=== PATIENT | female | born 1935 | race Two or more races ===

== ENCOUNTER 2018-09-09 10:45 | Outpatient (CLI) | payer MEDICARE, BC | END 2018-09-09 23:59 | disposition home health service (06) | LOC: WOU 10:45 | PROVIDERS: ATTEND Podiatrist Foot & Ankle Surgery | DX: M20.12 Hallux valgus (acquired), left foot (principal); M20.11 Hallux valgus (acquired), right foot; M06.9 Rheumatoid arthritis, unspecified; R60.0 Localized edema; Z86.718 Personal history of other venous thrombosis and embolism; Z85.3 Personal history of malignant neoplasm of breast | CPT/HCPCS: A6402; G0463 ==

== ENCOUNTER 2018-09-12 11:22 | Outpatient (CLI) | payer MEDICARE, BC | END 2018-09-12 23:59 | disposition home or self-care (01) | LOC: LAB 11:22 | PROVIDERS: ATTEND Podiatrist Foot & Ankle Surgery | DX: M20.11 Hallux valgus (acquired), right foot (principal); M20.12 Hallux valgus (acquired), left foot; M20.41 Other hammer toe(s) (acquired), right foot; I70.208 Unspecified atherosclerosis of native arteries of extremities, other extremity | CPT/HCPCS: 73630-TC ==

== ENCOUNTER 2018-10-07 10:25 | Outpatient (CLI) | payer MEDICARE, BC | END 2018-10-07 23:59 | disposition home health service (06) | LOC: WOU 10:25 | PROVIDERS: ATTEND Podiatrist Foot & Ankle Surgery | DX: M20.11 Hallux valgus (acquired), right foot (principal); M21.611 Bunion of right foot; M20.40 Other hammer toe(s) (acquired), unspecified foot; M06.9 Rheumatoid arthritis, unspecified; M79.671 Pain in right foot; Z79.899 Other long term (current) drug therapy | CPT/HCPCS: G0463 ==

== ENCOUNTER 2018-10-16 11:34 | Outpatient (CLI) | payer MEDICARE, BC | END 2018-10-16 23:59 | disposition home or self-care (01) | LOC: CARD 11:34 | PROVIDERS: ATTEND Podiatrist Foot & Ankle Surgery | DX: I65.23 Occlusion and stenosis of bilateral carotid arteries (principal); I70.203 Unspecified atherosclerosis of native arteries of extremities, bilateral legs | CPT/HCPCS: 93880-TC; 93970-TC ==

== ENCOUNTER 2018-11-11 14:25 | Outpatient (CLI) | payer MEDICARE, BC ==
[2018-11-11 15:55] LABS: BASOPHILS # (AUTO) 0.1 /CMM (0.0-0.2); BASOPHILS % (AUTO) 1.1 % (0.0-2.0); EOSINOPHILS % (AUTO) 4.5 % (0.0-6.0); HEMATOCRIT 40 % (33-45); HEMOGLOBIN 13.7 g/dL (11.5-14.8); LYMPHOCYTES % (AUTO) 20.4 % (20.0-44.0); MEAN CORPUSCULAR HGB CONC 34 g/dl (31.0-36.0); MEAN CORPUSCULAR VOLUME 103 fL (82-100); MONOCYTES # (AUTO) 0.8 /CMM (0.1-1.30); NEUTROPHILS # (AUTO) 2.8 /CMM (1.8-8.9); PLATELET COUNT (AUTO) 179 /CMM (150-450); RED BLOOD CELL COUNT(AUTO) 3.88 MIL/uL (4.0-5.2); WHITE BLOOD COUNT (AUTO) 4.9 K/uL (4.3-11.0)
[2018-11-11 16:14] LABS: CALCIUM, SERUM 9.2 mg/dL (8.5-10.1); CARBON DIOXIDE 30 mmol/L (21-32); CHLORIDE 104 mmol/L (98-107); CREATININE 1.3 mg/dL (0.6-1.3); GLUCOSE 113 mg/dL (74-106); POTASSIUM 4.2 mmol/L (3.5-5.1); SODIUM SERUM 144 mmol/L (136-145); UREA NITROGEN, BLOOD 41 mg/dL (7-18)
[2018-11-11 17:04] LABS: EOSINOPHILS % (MANUAL) 4 % (0-4); LYMPHOCYTES % (MANUAL) 28 % (16-48); MONOCYTES % (MANUAL) 12 % (0-11.0); NEUTROPHILS % (MANUAL) 56 (42-76)
== END 2018-11-11 23:59 | disposition home health service (06) ==
LOC: VASLAB 14:25
PROVIDERS: ATTEND Surgery Vascular Surgery
DX: I65.22 Occlusion and stenosis of left carotid artery (principal); Z87.891 Personal history of nicotine dependence
CPT/HCPCS: 36415; 80048; 85025; G0463

== ENCOUNTER 2018-11-19 10:59 | Outpatient (CLI) | payer MEDICARE, BC ==
[2018-11-19] MEDS ORDERED: IOHEXOL-350 100 ML VIAL IV ONE (11:12)
[2018-11-19] MEDS ORDERED: IV NS 0.9% 250 ML IV ONE (11:12)
[2018-11-19] MEDS ORDERED: CT SWABBABLE VALVE TRANS SET 1 EA INFUS.SET MC ONE (11:12)
== END 2018-11-19 23:59 | disposition home or self-care (01) ==
LOC: CT 10:59
PROVIDERS: ATTEND Surgery Vascular Surgery
DX: I67.82 Cerebral ischemia (principal); G31.9 Degenerative disease of nervous system, unspecified; I65.22 Occlusion and stenosis of left carotid artery; I73.9 Peripheral vascular disease, unspecified
CPT/HCPCS: 70496; 70498; J7050; Q9967